=== PATIENT | female | born 1965 | race Two or more races ===

== ENCOUNTER → 2023-05-24 | Emergency (ER) | payer OTHER ==
[~2023-05-24] VITALS: Ht 162.6 cm; Wt 54.4 kg
[~2023-05-24] MED LIST: PROGESTERONE100 M1 PO
== END | disposition home or self-care (01) ==
LOC: ER 15:47
DX: S92.415A Nondisplaced fracture of proximal phalanx of left great toe, initial encounter for closed fracture (principal); X58.XXXA Exposure to other specified factors, initial encounter; Y93.89 Activity, other specified; Y92.89 Other specified places as the place of occurrence of the external cause; Y99.9 Unspecified external cause status